=== PATIENT | female | born 1975 ===

== ENCOUNTER 2025-01-28 10:45 | Inpatient (IN) | payer OTHER ==
[~2025-01-28] VITALS: Ht 61 cm; Wt 91.6 kg
[~2025-01-28 10:45] MED LIST: CIPRO750 MG PO; CLONAZEPAM1 MG PO; DOCUSATE SODIU100 MG PO; METHYLPRED4 MG/DOSE- PO; NEURONTIN PO; PERCOCET 5/3251 TAB PO
[2025-01-28] MEDS ORDERED: TOPROL XL50 M1 PO (14:22)
[2025-01-28] MEDS ORDERED: COZAAR50 MG PO (14:22)
[2025-01-28] MEDS ORDERED: LAMICTAL200 MG PO (14:22)
[2025-01-28] MEDS ORDERED: ZOLOFT100 MG PO (14:23)
[2025-01-28] MEDS ORDERED: PROAIR RESPICL90 MCG IH (14:23)
[2025-01-28] MEDS ORDERED: PROTONIX40 MG PO (14:24)
[2025-01-28] MEDS ORDERED: LIPITOR20 MG PO (14:24)
[2025-01-28] MEDS ORDERED: LYRICA100 MG PO (14:24)
[2025-01-28] MEDS ORDERED: SINGULAIR4 M1 (14:25)
[2025-01-28] MEDS ORDERED: TRULICITY0.75 MG/0. (14:25)
[2025-02-04] MEDS ORDERED: PERCOCET 5-3251 EACH PO (13:38)
[2025-02-04] MEDS ORDERED: MEDROLPACK PO (13:38)
[2025-02-04] MEDS ORDERED: COLACE100 MG PO (13:38)
[2025-02-04] MEDS ORDERED: ZOFRAN8 MG PO (13:39)
[2025-02-04] MEDS ORDERED: VANCOMYCIN HCL 1,000 MG VIAL IV ONE (15:30)
[2025-02-04] MEDS ORDERED: METHYLPREDNISOLONE SOD SUCC 125 MG VIAL IV ONE ×2 (15:30)
[2025-02-04] MEDS ORDERED: HEMOSTATIC MATRIX WITH THROMBIN KIT TOP ONE (15:30)
[2025-02-04] MEDS ORDERED: CEFAZOLIN SODIUM 1,000 MG VIAL IV ONE (15:30)
[2025-02-04] MEDS ORDERED: 0.9 % SODIUM CHLORIDE 1,000 ML IV SCH (16:30)
[2025-02-04] MEDS ORDERED: PROMETHAZINE HCL 50 MG/ML AMPUL IM PRN (16:30)
[2025-02-04] MEDS ORDERED: ENALAPRILAT DIHYDRATE 1.25 MG/ML VIAL IV PRN (16:30)
[2025-02-04] MEDS ORDERED: METHYLPREDNISOLONE SOD SUCC 125 MG VIAL IV SCH (17:00)
[2025-02-04] MEDS ORDERED: MORPHINE SULFATE 4 MG/ML VIAL IV SCH (17:00)
[2025-02-04] MEDS ORDERED: CEFAZOLIN SODIUM 1,000 MG in 0.9 % SODIUM CHLORIDE 50 ML IV SCH (17:00)
[2025-02-04] MEDS ORDERED: DOCUSATE SODIUM 100MG CAP PO SCH (17:00)
[2025-02-04] MEDS ORDERED: ACETAMINOPHEN 500 MG GEL..CAP PO SCH (20:00)
[2025-02-05] MEDS ORDERED: SODIUM CHLORIDE 0.45 % 1,000 ML IV SCH
[2025-02-05] MEDS ORDERED: OxyCODONE HCL 5 MG TABLET (ROXICODONE) PO PRN (06:01)
[2025-02-05] MEDS ORDERED: TAMSULOSIN HCL 0.4 MG CAP PO SCH (09:00)
[2025-02-05 12:48] VITALS: BP 132/80; O2SAT 96
[2025-02-05 16:51] VITALS: BP 141/75; O2SAT 97
[2025-02-05 17:32] VITALS: O2SAT 95
[2025-02-05 19:14] VITALS: O2SAT 96
[2025-02-05 23:48] VITALS: O2SAT 94
[2025-02-06 01:15] VITALS: BP 116/71; O2SAT 97
[2025-02-06 04:00] VITALS: O2SAT 95
[2025-02-06 07:30] VITALS: BP 131/75; O2SAT 96
[2025-02-06 08:37] VITALS: O2SAT 90
== END 2025-02-06 14:47 | disposition home or self-care (01) | DRG 471 ==
LOC: SURH 02-04 10:45 → SURG 02-04 11:00 → O/R 02-04 11:00 → SURG 02-05 07:36
PROVIDERS: ADMIT Orthopaedic Surgery Orthopaedic Surgery of the Spine; ATTEND Orthopaedic Surgery Orthopaedic Surgery of the Spine
PROC: 0RT30ZZ Resection of Cervical Vertebral Disc, Open Approach (ICD-10-PCS; 2025-02-04)
PROC: 07DS0ZZ Extraction of Vertebral Bone Marrow, Open Approach (ICD-10-PCS; 2025-02-04)
PROC: 4A11X4G Monitoring of Peripheral Nervous Electrical Activity, Intraoperative, External Approach (ICD-10-PCS; 2025-02-04)
PROC: 3E0F7GC Introduction of Other Therapeutic Substance into Respiratory Tract, Via Natural or Artificial Opening (ICD-10-PCS; 2025-02-04)
PROC: 0RG20A0 Fusion of 2 or more Cervical Vertebral Joints with Interbody Fusion Device, Anterior Approach, Anterior Column, Open Approach (ICD-10-PCS; principal; 2025-02-04 14:15)
PROC: 4A12X4Z Monitoring of Cardiac Electrical Activity, External Approach (ICD-10-PCS; 2025-02-05)
DX: M50.021 Cervical disc disorder at C4-C5 level with myelopathy (principal); J96.01 Acute respiratory failure with hypoxia; J81.1 Chronic pulmonary edema; M50.022 Cervical disc disorder at C5-C6 level with myelopathy; E03.9 Hypothyroidism, unspecified